=== PATIENT | female | born 1965 | race Caucasian/White ===

== ENCOUNTER 2020-10-09 02:09 | Emergency (ER) | payer OTHER ==
[~2020-10-09] VITALS: Ht 147.3 cm; Wt 81.6 kg
[2020-10-09 02:34] VITALS: BP_SYST 149
--- NOTE | 2020-10-09 02:40 | NUR ---
Patient ambulatory to bed 2 for evaluation
[2020-10-09] MEDS ORDERED: METF1000 PO (02:42)
[2020-10-09] MEDS ORDERED: METO100T14 PO (02:43)
[2020-10-09] MEDS ORDERED: NOR10 PO (02:44)
--- NOTE | 2020-10-09 02:53 | NUR ---
ER Dr. Bates at bedside examining patient.
--- NOTE | 2020-10-09 02:55 | NUR ---
Assumed total care of patient. Patient AAO x4 from home c/o epigastric pain/upper right quadrant pain. Patient reports nausea, burping, and burning pain after consuming tortilla chips earlier. Patient states pain radiates towards both sides of back. Patient VSS, breathing even and unlabored, no signs of acute distress noted. Will continue to monitor.
[2020-10-09] MEDS ORDERED: PROCHLORPERAZINE EDISYLATE 10 MG/2 ML VIAL IVP ONE (03:00)
[2020-10-09] MEDS ORDERED: ACETAMINOPHEN I.V. 1000 MG 100 ML IV ONE (03:00)
[2020-10-09] MEDS ORDERED: NACL 0.9% 1,000 ML IV ONE (03:00)
--- NOTE | 2020-10-09 03:00 | NUR ---
# 20 gauge angiocath placed to left forearm. Use of asceptic technique. Opsite placed over site. Blood return noted. Blood for lab drawn from site. Flushed with 10 cc of normal saline. No evidence of infiltration noted. Patient tolerated well.
--- NOTE | 2020-10-09 03:32 | NUR ---
Patient friend at bedside with patient, showed proof of vaccination for COVID.
--- NOTE | 2020-10-09 03:35 | NUR ---
Patient refusing tylenol for pain medication at the moment. MD aware. Patient reports she does not want any narcotics what so ever.
--- NOTE | 2020-10-09 03:38 | NUR ---
Dr. Bates at bedside performing abdominal ultrasound.
[2020-10-09 04:02] LABS: BILIRUBIN,URINE NEGATIVE (NEGATIVE); BLOOD, URINE NEGATIVE (NEGATIVE); CLARITY/URINE CLEAR (CLEAR); COLOR,URINE YELLOW (YELLOW); GLUCOSE,URINE 3+ (NEGATIVE); KETONES,URINE 2+ (NEGATIVE); LEUKOCYTE ESTERASE ,URINE NEGATIVE (NEGATIVE); NITRITE, URINE NEGATIVE (NEGATIVE); PROTEIN URINE NEGATIVE (NEGATIVE); UROBILINOGEN,URINE 0.2 (0.2-1.0)
[2020-10-09 04:02] LABS: BASOPHILS # (AUTO) 0.1 K/uL (0.0-0.2); BASOPHILS % (AUTO) 1.5 % (0.0-2.0); EOSINOPHILS # (AUTO) 0.1 K/uL (0.0-0.4); HEMOGLOBIN 12.9 g/dL (12.0-16.0); LYMPHOCYTES # (AUTO) 0.7 K/uL (1.0-5.5); LYMPHOCYTES % (AUTO) 9.8 % (20.5-51.5); MEAN CORPUSCULAR HEMOGLOBIN 26 pg (27-31); MEAN CORPUSCULAR HGB CONC 32 % (32-36); MEAN CORPUSCULAR VOLUME 82 fL (79.0-98.0); MONOCYTES # (AUTO) 0.4 K/uL (0.0-1.0); NEUTROPHILS # (AUTO) 5.9 K/uL (1.8-7.7); NEUTROPHILS % (AUTO) 82.7 % (40.0-70.0); PLATELET COUNT (AUTO) 250 K/uL (130-430); RED CELL DISTRIBUTION WIDTH 16.6 % (9.0-15.0); WHITE BLOOD COUNT (AUTO) 7.1 K/uL (4.8-10.8)
[2020-10-09 04:04] LABS: CALCIUM 9.7 mg/dL (8.4-11.0); CREATININE 0.78 mg/dL (0.55-1.30); POTASSIUM 4.1 mmol/L (3.5-5.1)
--- NOTE | 2020-10-09 04:05 | NUR ---
Report given to PACO [facility] for continuation of care.
[2020-10-09 04:10] LABS: ALBUMIN 4.2 g/dL (3.4-4.8); TOTAL BILIRUBIN 0.9 mg/dL (0.0-1.0)
[2020-10-09 04:26] LABS: BACTERIA,URINE FEW /HPF (None Seen); RBC,URINE 0-3 /HPF (0-3); WBC,URINE 0-3 /HPF (0-3)
[2020-10-09] MEDS ORDERED: PRO40 PO (04:44)
[2020-10-09] MEDS ORDERED: PROC5TAB12 PO (04:44)
[2020-10-09] MEDS ORDERED: HYDR-3917 PO (04:44)
[2020-10-09 05:00] VITALS: BP_SYST 142
--- NOTE | 2020-10-09 05:00 | NUR ---
Patient given written and verbal discharge instructions and verbalizes understanding. ER MD discussed with patient the results and treatment provided. Patient in stable condition. ID arm band removed. IV catheter removed intact and dressing applied, no active bleeding. Rx of Compazine, Loa, and Protonix given. Patient educated on pain management and to follow up with PMD. Pain Scale 0/10 Opportunity for questions provided and answered. Medication side effect fact sheet provided.
== END 2020-10-09 05:00 | disposition home or self-care (01) ==
LOC: SED 02:09
DX: K80.70 Calculus of gallbladder and bile duct without cholecystitis without obstruction (principal); E11.65 Type 2 diabetes mellitus with hyperglycemia; I10 Essential (primary) hypertension; Z88.8 Allergy status to other drugs, medicaments and biological substances; Z79.899 Other long term (current) drug therapy; Z79.84 Long term (current) use of oral hypoglycemic drugs
CPT/HCPCS: 36415; 80053; 81000; 82962; 83690; 85025; 96361; 96374; 99284; J0131; J0780; J7030